=== PATIENT | female | born 1985 | race American Indian/Alaskan Native ===

== ENCOUNTER 2018-09-11 23:22 | Emergency (ER) | payer SELFPAY ==
[2018-09-11] MEDS ORDERED: TYLENOL ONE (23:34)
[2018-09-11 23:41] VITALS: BP 142/81
[2018-09-11] MEDS ORDERED: TYLENOL PO ONE (23:55)
[2018-09-11 23:59] LABS: Basophils % (Auto) 0.6 % (0.0-1.8); Eosinophils # (Auto) 0.9 K/mm3 (0.0-0.4); Eosinophils % (Auto) 10.5 % (0.0-4.3); Hemoglobin 12.5 gm/dl (10.1-14.3); Lymphocytes % (Auto) 36.8 % (13.4-35.0); Mean Corpuscular HGB Conc 34 % (30-34); Mean Corpuscular Volume 95 fl (79-97); Monocytes # (Auto) 0.5 K/mm3 (0.0-0.8); Monocytes % (Auto) 6.6 % (0.0-7.3); Platelet Count 274 K/mm3 (140-440); Red Blood Count 3.91 M/mm3 (3.65-5.03)
[2018-09-12 00:27] LABS: BUN/Creatinine Ratio 15; Blood Urea Nitrogen 9 mg/dL (7-17); Calcium 9.1 mg/dL (8.4-10.2); Hemolysis Index 10
[2018-09-12] MEDS ORDERED: NACL 0.9% 1000 ML 1,000 ML IV ONE (01:11)
[2018-09-12] MEDS ORDERED: BENTYL IM ONE (01:11)
--- NOTE | 2018-09-12 02:01 | Emergency Department Report ---
ED HPI - General Chief complaint: Vaginal Bleeding Stated complaint: VAGINAL BLEEDING Time Seen by Provider: 09/12/18 01:09 Source: patient Mode of arrival: Ambulatory Limitations: No Limitations - History of Present Illness Initial comments: Patient is a 33-year-old female A0 approximately 1 week states that worsened tonight about 9 PM last menstrual period. He was Bety is no fevers no chills or his abdominal cramping with vaginal bleeding patient has used two pads tonight, pain is 4/10 symptoms at this time MD Complaint: abdominal pain, vaginal bleeding Location: pelvis, abdomen (Advised) Severity: moderate Quality: cramping Consistency: constant Improves with: none Worsens with: none Associated symptoms: vaginal bleeding, abdominal pain Vaginal bleeding: light :: Yes Number of weeks : 12 OB History - Previous Pregnancies: no complications Pre-kiana care: none ( mercury right) - Related Data : 4 Para: 3 Ab: 0 Previous Rx's Medication Instructions Recorded Last Taken Type Dicyclomine [Bentyl] 10 mg PO QID PRN #30 capsule 09/12/18 Unknown Rx Tramadol HCl [Ultram] 50 mg PO Q6H PRN #12 tablet 09/12/18 Unknown Rx Allergies Allergy/AdvReac Type Severity Reaction Status Date / Time No Known Allergies Allergy Unverified 09/11/18 23:41 ED Review of Systems ROS: Stated complaint: VAGINAL BLEEDING Other details as noted in HPI Constitutional: denies: chills, fever Eyes: denies: eye pain, eye discharge, vision change ENT: denies: ear pain, throat pain Respiratory: denies: cough, shortness of breath, wheezing Cardiovascular: denies: chest pain, palpitations Endocrine: no symptoms reported Gastrointestinal: abdominal pain. denies: nausea, vomiting Genitourinary: denies: urgency, dysuria, discharge Musculoskeletal: denies: back pain, joint swelling, arthralgia Skin: denies: rash, lesions Neurological: denies: headache, weakness, paresthesias Psychiatric: denies: anxiety, depression Hematological/Lymphatic: denies: easy bleeding, easy bruising ED Past Medical Hx - Past Medical History Previous Medical History?: No - Surgical History Past Surgical History?: No - Social History Smoking Status: Current Every Day Smoker Substance Use Type: None - Medications Home Medications: Home Medications Medication Instructions Recorded Confirmed Last Taken Type Dicyclomine [Bentyl] 10 mg PO QID PRN #30 capsule 09/12/18 Unknown Rx Tramadol HCl [Ultram] 50 mg PO Q6H PRN #12 tablet 09/12/18 Unknown Rx ED Physical Exam - General Limitations: No Limitations General appearance: alert, in no apparent distress - Head Head exam: Present: atraumatic, normocephalic - Eye Eye exam: Present: normal appearance, PERRL, EOMI Pupils: Present: normal accommodation - ENT ENT exam: Present: mucous membranes moist - Neck Neck exam: Present: normal inspection, full ROM. Absent: lymphadenopathy, thyromegaly - Respiratory Respiratory exam: Present: normal lung sounds bilaterally. Absent: respiratory distress - Cardiovascular Cardiovascular Exam: Present: regular rate, normal rhythm, normal heart sounds. Absent: systolic murmur, diastolic murmur, rubs, gallop - GI/Abdominal GI/Abdominal exam: Present: soft - Rectal Rectal exam: Present: deferred - Extremities Exam Extremities exam: Present: normal inspection, full ROM. Absent: tenderness - Back Exam Back exam: Present: normal inspection, full ROM. Absent: tenderness, CVA tenderness (R), CVA tenderness (L) - Neurological Exam Neurological exam: Present: alert, oriented X3, normal gait - Psychiatric Psychiatric exam: Present: normal affect, normal mood - Skin Skin exam: Present: warm, dry, intact, normal color. Absent: rash ED Course Vital Signs 09/11/18 23:36 Temperature 97.6 F Pulse Rate 87 Respiratory 18 Rate Blood Pressure 142/81 O2 Sat by Pulse 100 Oximetry ED Medical Decision Making - Lab Data Result diagrams: 09/11/18 23:46 09/11/18 23:46 - Radiology Data Radiology results: report reviewed, image reviewed TECHNIQUE: Real-time transabdominal sonography of the uterus, placenta, amniotic fluid, adnexa, and fetus was performed with image documentation. Measurements were obtained to determine age/size. M-mode Doppler was used to document heartbeat. ADDITIONAL GESTATION: None. HISTORY: abdominal pain and vaginal bleeding. COMPARISONS: None . FINDINGS: The uterus is 12.6 x 5 x 6.9 cm. Endometrial thickness is 22 mm. There is a elongated flattened gestational sac within the endometrium this measures 37 mm. No pole is identified. A yolk sac. The right ovary has normal size and appearance. The liver is not visualized. The findings are most consistent with spontaneous . There are some p roducts of conception identified on the endometrium. IMPRESSION: Spontaneous with some prominence of conception identified in the endometrium. This document is electronically signed by Mehnaz Pelletier DO., September 12 2018 02:31:34 AM ET Transcribed By: [facility] Dictated By: MEHNAZ PELLETIER MD Electronically Authenticated By: MEHNAZ PELLETIER MD Signed Date/Time: 09/12/18233 DD/ 5 TD/TT: 09/12/18207 - Medical Decision Making As a spontaneous miscarriage hemorrhage and bleeding is slowing per patient patient defers vaginal exam her to [facility] follow-up plan follow up with [facility] on Friday 2 days from now return to emergency department should bleeding Increase oral symptoms worsen patient verbalizes agreement and understanding w ith discharge plan patient will be DC'd to home in stable condition at this time Critical care attestation.: If time is entered above; I have spent that time in minutes in the direct care of this critically ill patient, excluding procedure time. ED Disposition Clinical Impression: Miscarriage Disposition: DC-01 TO HOME OR SELFCARE Is pt being admited?: No Does the pt Need Aspirin: No Condition: Stable Instructions: Spontaneous Miscarriage (ED) Prescriptions: Dicyclomine [Bentyl] 10 mg PO QID PRN #30 capsule PRN Reason: Spasms Tramadol HCl [Ultram] 50 mg PO Q6H PRN #12 tablet PRN Reason: pain Referrals: [facility] [Provider Group] - 3-5 Days Forms: Work/School Release Form(ED) Time of Disposition: 03:04
--- NOTE | 2018-09-12 02:34 | Ultrasound Report ---
PROCEDURE: US OB TRANSVAGINAL TECHNIQUE: Real-time transabdominal sonography of the uterus, placenta, amniotic fluid, adnexa, and fetus was performed with image documentation. Measurements were obtained to determine age/size. M-mode Doppler was used to document heartbeat. ADDITIONAL GESTATION: None. HISTORY: abdominal pain and vaginal bleeding. COMPARISONS: None . FINDINGS: The uterus is 12.6 x 5 x 6.9 cm. Endometrial thickness is 22 mm. There is a elongated flattened gesta tional sac within the endometrium this measures 37 mm. No pole is identified. A yolk sac. The right ovary has normal size and appearance. The liver is not visualized. The findings are most consistent with spontaneous . There are some products of conception katelynn ntified on the endometrium. IMPRESSION: Spontaneous with some prominence of conception identified in the endometrium. This document is electronically signed by Madelyn Pelletier DO., September 12 2018 02:31:34 AM ET
--- NOTE | 2018-09-12 02:34 | Ultrasound Report ---
PROCEDURE: US OB TRANSABDOMINAL AND TRANSVAGINAL TECHNIQUE: Real-time transabdominal and transvaginal sonography of the uterus, placenta, amniotic fl uid, adnexa, and fetus was performed with image documentation. Measurements were obtained to determin e age/size. M-mode Doppler was used to document heartbeat. ADDITIONAL GESTATION: None. HISTORY: abdominal pain and vaginal bleeding. COMPARISONS: None . FINDINGS: The uterus is 12.6 x 5 x 6.9 cm. Endometrial thickness is 22 mm. There is a elongated flattened gesta tional sac within the endometrium this measures 37 mm. No pole is identified. A yolk sac. The right ovary has normal size and appearance. The liver is not visualized. The findings are most consistent with spontaneous . There are some products of conception katelynn ntified on the endometrium. IMPRESSION: Spontaneous with some products of conception identified in the endometrium. This document is electronically signed by Madelyn Pelletier DO., September 12 2018 02:32:33 AM ET
[2018-09-12] MEDS ORDERED: ULTRAM PO ONE (02:56)
== END 2018-09-12 03:17 | disposition home or self-care (01) ==
LOC: EDSEX → ED 23:22
DX: O03.9 Complete or unspecified spontaneous abortion without complication (principal); Z3A.12 12 weeks gestation of pregnancy
CPT/HCPCS: 36415; 76801; 76817; 80048; 84702; 85025; 86850; 86900; 86901; 96372; 99284; J0500; J7030